=== PATIENT | female | born 1945 | race Caucasian/White ===

== ENCOUNTER 2023-11-27 13:19 | Emergency (ER) | payer OTHER | END 2023-11-27 18:12 | disposition home or self-care (01) | LOC: CSHERS 13:19 | DX: S09.90XA Unspecified injury of head, initial encounter (principal); S30.0XXA Contusion of lower back and pelvis, initial encounter; I48.91 Unspecified atrial fibrillation; I10 Essential (primary) hypertension; E11.9 Type 2 diabetes mellitus without complications; W22.8XXA Striking against or struck by other objects, initial encounter; Z79.01 Long term (current) use of anticoagulants | CPT/HCPCS: 70450; 72125; 72131 ==